=== PATIENT | female | born 1965 | race Caucasian/White ===

== ENCOUNTER 2021-05-13 23:49 | Emergency (ER) | payer OTHER ==
[2021-05-14] MEDS ORDERED: Dexamethasone 20 MG/5 ML VIAL ONE (00:16)
[2021-05-14] MEDS ORDERED: Acetaminophen 500 MG TAB ONE (00:16)
== END 2021-05-14 00:47 | disposition home or self-care (01) ==
LOC: NAV ERS 23:49
DX: M79.89 Other specified soft tissue disorders (principal); M79.672 Pain in left foot
CPT/HCPCS: 96372; 99283; J1100